=== PATIENT | female | born 1955 | race Caucasian/White ===

== ENCOUNTER 2019-10-26 11:02 | Outpatient (CLI) | payer MEDICARE, OTHER, SELFPAY ==
[2019-10-26 13:22] LABS: Blood Urea Nitrogen 20 mg/dL (7-17); Calcium 9.3 mg/dL (8.4-10.2); Carbon Dioxide 27 mmol/L (22-30); Chloride 102 mmol/L (98-107); Estimated Glomerular Filt Rate > 60; Glucose 77 mg/dL (65-105); Potassium 4.2 mmol/L (3.4-5.0); Sodium 140 mmol/L (137-145)
[2019-10-28 21:53] LABS: C-Peptide <0.10 ng/mL (0.80-3.85)
[2019-10-30 13:23] LABS: Glutamic acid decarboxylase AA 27 IU/mL (<5)
[2019-11-01 22:32] LABS: Islet Cell Antibody Screen NEGATIVE (NEGATIVE)
== END 2019-10-26 11:03 | disposition home or self-care (01) ==
LOC: ANHWCLAB 11:10
PROVIDERS: PCP Internal Medicine Endocrinology, Diabetes & Metabolism; Visit Provider Internal Medicine Endocrinology, Diabetes & Metabolism
DX: E10.65 Type 1 diabetes mellitus with hyperglycemia (principal)
CPT/HCPCS: 36415; 80048; 84681; 86341

== ENCOUNTER 2022-03-21 10:06 | Outpatient (CLI) | payer MEDICARE, SELFPAY ==
[2022-03-21 16:51] LABS: Anion Gap 7 mmol/L (8-16); Blood Urea Nitrogen 18 mg/dL (7-17); Carbon Dioxide 28 mmol/L (22-30); Chloride 102 mmol/L (98-107); Estimated Glomerular Filt Rate > 60; Glucose 284 mg/dL (65-110); HDL Direct 72 mg/dL; Potassium 3.5 mmol/L (3.4-5.0); Sodium 137 mmol/L (137-145)
[2022-03-21 17:02] LABS: LDL Cholesterol Direct 79 mg/dL
[2022-03-21 19:32] LABS: Free T4 Free Thyroxine 1.75 ng/mL (0.78-2.19)
== END 2022-03-21 10:07 | disposition home or self-care (01) ==
LOC: ANHWCLAB 10:09
PROVIDERS: PCP Internal Medicine Endocrinology, Diabetes & Metabolism; Referring Provider Internal Medicine Endocrinology, Diabetes & Metabolism; Visit Provider Internal Medicine Endocrinology, Diabetes & Metabolism
DX: E03.9 Hypothyroidism, unspecified (principal); E10.65 Type 1 diabetes mellitus with hyperglycemia; Z78.0 Asymptomatic menopausal state
CPT/HCPCS: 36415; 80048; 83718; 83721; 84439; 84443

== ENCOUNTER 2022-12-26 14:07 | Outpatient (CLI) | payer MEDICARE, SELFPAY ==
[2022-12-26 17:43] LABS: Free T4 Free Thyroxine 1.66 ng/mL (0.78-2.19)
== END 2022-12-26 14:08 | disposition home or self-care (01) ==
LOC: ANHWCLAB 14:09
PROVIDERS: PCP Internal Medicine; Visit Provider Internal Medicine Endocrinology, Diabetes & Metabolism
DX: E10.65 Type 1 diabetes mellitus with hyperglycemia (principal); E03.9 Hypothyroidism, unspecified
CPT/HCPCS: 36415; 84439; 84443